=== PATIENT | male | born 1985 ===

== ENCOUNTER 2021-10-17 21:14 | Emergency (ER) | payer BC ==
--- OUTSIDE RECORDS SUMMARY | 2021-10-17 21:16 | XMS REPORT | Continuity of Care Document ---
:1985 Author Organization [facility] t Address [facility] [address] [place] [address] Care Team Providers Name Role Phone PARESH Attending Clinician Unavailable MD TERRA YODER Attending Clinician Unavailable PARESH Admitting Clinician Unavailable MD TERRA YODER Admitting Clinician Unavailable Problems This patient has no known problems. Allergies, Adverse Reactions, Alerts This patient has no known allergies or adverse reactions. Medications This patient has no known medications. Procedures This patient has no known procedures. Encounters Start End Encounter Admission Attending Care Care Encounter Source Date/Time Date/Time Type Type Clinicians Facility Department ID 2021-04-30 2021-04-30 Outpatient [facility] [id number] [place] 00:00:00 00:00:00 AKASH [address] 2021-03-26 2021-03-26 Outpatient [facility] [id number] [place] 00:00:00 00:00:00 AKASH [address] 2021-03-18 2021-03-18 [id number] [place] 00:00:00 00:00:00 AKASH [address] 2021-03-15 2021-03-15 [facility] [id number] [place] 00:00:00 00:00:00 AKASH [address] 2021-02-26 2021-02-26 Outpatient [facility] [id number] [place] 00:00:00 00:00:00 AKASH [address] 2021-02-21 2021-02-21 Outpatient [facility] [id number] [place] 00:00:00 00:00:00 AAKSH [address] 2021-02-21 2021-02-21 Outpatient [facility] [id number] [place] 00:00:00 00:00:00 AKASH [address] 2021-02-21 2021-02-21 Outpatient [facility] [id number] [place] 00:00:00 00:00:00 [address] [facility] Results Test Description Test Time Test Comments Results Result Comments Source SARS-CoV-2 (COVID-19) RNA [Presence] in Respiratory sp ecimen by 2021-03-15 18:53:02 KELSEY with probe detection Test Item Value Reference Range Interpretation Comme nts SARS-CoV-2 (COVID-19) RNA [Presence] in Respiratory Not detected No t-Detected specimen by KELSEY with probe detection (test code = 79683-0) Whether patient is employed in a healthcare setting (test code = 67841-7) Whether the patient has symptoms related to condition of interest (test code = 55424-7) Patient was hospitalized because of this condition (test code = 24884-7) Whether the patient was admitted to intensive care unit (ICU) for condition of interest (test code = 69214-7) Whether patient resides in a congregate care setting (test code = 25843-1)
[2021-10-17] MEDS ORDERED: TETANUS & DIPHTHERIA TOX,ADULT 0.5 ML VIAL ONE (21:42)
[2021-10-17] MEDS ORDERED: LIDOCAINE 1% MPF 5 ML VIAL ONE (21:42)
--- NOTE | 2021-10-17 22:07 | ER ---
Nurse's Notes [facility] Name: Enzo Salazar Age: 35 yrs Sex: Male : 1985 Arrival Date: 10/17/2021 Time: 21:23 Bed 19 Private MD: Diagnosis: Avulsion laceration of tip of left index finger Presentation: 10/17 21:24 Chief complaint: Patient states: "I was cutting vegetables and I cut the tip of my aj1 finger about noon today". Coronavirus screen: Vaccine status: Patient reports receiving the 2nd dose of the covid vaccine. Ebola Screen: Patient denies travel to an Ebola-affected area in the 21 days before illness onset. Complicating Factors: There are no complicating factors for this patient. Initial Sepsis Screen: Does the patient meet any 2 criteria? No. Patient's initial sepsis screen is negative. Does the patient have a suspected source of infection? No. Patient's initial sepsis screen is negative. Risk Assessment: Do you want to hurt yourself or someone else? Patient reports no desire to harm self or others. Onset of symptoms was October 17, 2021. 21:24 Method Of Arrival: Ambulatory aj 21:24 Acuity: ILEANA 3 aj1 Triage Assessment: 21:24 General: Appears in no apparent distress. comfortable, Behavior is calm, cooperative, aj1 appropriate for age. Pain: Complains of pain in left index finger Pain currently is 3 out of 10 on a pain scale. Neuro: Level of Consciousness is awake, alert, obeys commands, Oriented to person, place, time, situation. Injury Description: Laceration sustained to left index finger. Historical: - Allergies: 21:28 No Known Allergies; aj1 - Home Meds: 21:28 None [Active]; aj1 - PMHx: 21:28 None; aj1 - PSHx: 21:28 None; aj1 - Immunization history:: Client reports receiving the 2nd dose of the Covid vaccine, Flu vaccine is not up to date. - Social history:: Smoking status: Patient reports the use of cigarette tobacco products, denies chronic smoking, but will smoke occasionally. Screenin:35 Abuse screen: Denies threats or abuse. Nutritional screening: No deficits noted. cc4 Tuberculosis screening: No symptoms or risk factors identified. Fall Risk None identified. Assessment: 21:35 Musculoskeletal: Avulsion of skin distal medial index finger with sm attachment of cc4 avulsed skin; no active bleeding; moves finger freely with no difficulty. Injury Description: Avulsion left index finger; reports cutting up peppers earlier today around noon. 21:35 Injury Description: Avulsion sustained to dorsal aspect of distal phalanx of left index cc4 finger is partial was sustained 6-12 hours ago. 21:35 Injury Description: Avulsion sustained to dorsal aspect of distal phalanx of left index cc4 finger is partial no bleeding noted. Vital Signs: 21:24 BP 141 / 91; Pulse 86; Resp 18; Temp 98.2; Pulse Ox 100% on R/A; Weight 86.18 kg (R); aj1 Height 6 ft. 1 in. (185.42 cm) (R); Pain 3/10; 21:24 Body Mass Index 25.07 (86.18 kg, 185.42 cm) aj1 ED Course: 21:23 Patient arrived in ED. wm 21:24 [facility] kb 21:24 Dustin Mccauley MD is Attending Physician. kb 21:24 Arm band placed on Patient placed in an exam room. aj1 21:27 Triage completed. aj1 21:35 Patient has correct armband on for positive identification. Bed in low position. Call cc4 light in reach. Side rails up X 1. 21:41 Berenice Hernandez, RN is Primary Nurse. cc4 22:15 No provider procedures requiring assistance completed. cc4 22:15 Patient did not have IV access during this emergency room visit. 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 Exp: cc4 04/05/2023. Lot #: [id number]. } Route: IM; Site: right deltoid; 22:15 Follow up: Response: No adverse reaction cc4 21:55 Drug: Lidocaine (1 %) 1 vials Volume: 5 ml; Route: Infiltration; cc4 22:15 Follow up: Response: No adverse reaction cc4 Outcome: 22:05 Discharge ordered by . kb 22:15 Discharged to home ambulatory. cc4 22:15 Condition: improved 22:15 Discharge instructions given to patient, Instructed on discharge instructions, follow up and referral plans. Demonstrated understanding of instructions, follow-up care, wound care. Signatures: Gaby Starkey, ELAN-Porsha ANSARI-Elle Jeronimo RN RN aj1 Leslie Peoples Christie, RN RN cc4 Corrections: (The following items were deleted from the chart) 10/18 02:21 10/17 22:38 Patient left the ED. cc4 cc4 10/18 02:30 10/17 22:25 No provider procedures requiring assistance completed. cc4 cc4
--- NOTE | 2021-10-17 22:07 | EDPHYS ---
Physician Documentation [facility] Name: Enzo Salazar Age: 35 yrs Sex: Male : 1985 Arrival Date: 10/17/2021 Time: 21:23 Bed 19 Private MD: ED Physician Dustin Mccauley HPI: 10/17 22:02 This 35 yrs old Unknown Male presents to ER via Ambulatory with complaints of kb Laceration To Hand - Left index finger. 22:02 The patient has a laceration related to: cooking, from a knife, occurred at home, and kb there are no complicating factors. The injury was accidental. The laceration(s) is(are) located on the dorsal aspect of distal phalanx of left index finger. Onset: The symptoms/episode began/occurred at 12:00. Associated signs and symptoms: The patient has no apparent associated signs or symptoms. The patient has not experienced similar symptoms in the past. The patient has not recently seen a physician. Pt reports he was chopping vegetables at noon today and sliced the tip of his finger almost off. . Historical: - Allergies: 21:28 No Known Allergies; aj1 - Home Meds: 21:28 None [Active]; aj1 - PMHx: 21:28 None; aj1 - PSHx: 21:28 None; aj1 - Immunization history:: Client reports receiving the 2nd dose of the Covid vaccine, Flu vaccine is not up to date. - Social history:: Smoking status: Patient reports the use of cigarette tobacco products, denies chronic smoking, but will smoke occasionally. ROS: 22:01 Constitutional: Negative for fever, chills, and weight loss. kb 22:01 Skin: Positive for avulsion, of the dorsal aspect of distal phalanx of left index finger. 22:01 All other systems are negative. Exam: 22:01 Constitutional: This is a well developed, well nourished patient who is awake, alert, kb and in no acute distress. Head/Face: Normocephalic, atraumatic. ENT: Moist Mucous membranes Respiratory: Respirations even and unlabored. No increased work of breathing, no retractions or nasal flaring. MS/ Extremity: Pulses equal, no cyanosis. Neurovascular intact. Full, normal range of motion. Neuro: Awake and alert, GCS 15, oriented to person, place, time, and situation. Moves all extremities. Normal gait. Psych: Awake, alert, with orientation to person, place and time. Behavior, mood, and affect are within normal limits. 22:01 Skin: Partial avulsion laceration to left index finger. . Vital Signs: 21:24 BP 141 / 91; Pulse 86; Resp 18; Temp 98.2; Pulse Ox 100% on R/A; Weight 86.18 kg (R); aj1 Height 6 ft. 1 in. (185.42 cm) (R); Pain 3/10; 21:24 Body Mass Index 25.07 (86.18 kg, 185.42 cm) aj1 MDM: 21:29 Patient medically screened. kb 22:01 Data reviewed: vital signs, nurses notes. Data interpreted: Pulse oximetry: on room air kb is 100 %. Interpretation: normal. Counseling: I had a detailed discussion with the patient and/or guardian regarding: the historical points, exam findings, and any diagnostic results supporting the discharge/admit diagnosis, the need for outpatient follow up, a family practitioner, to return to the emergency department if symptoms worsen or persist or if there are any questions or concerns that arise at home. 22:04 ED course: Skin flap attached by one very small section, skin flap dry and pale. Skin kb flap removed with iris scissors after injecting 1cc plain lidocaine into area for local anesthesia. 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 Exp: cc4 04/05/2023. Lot #: [id number]. } Route: IM; Site: right deltoid; 22:15 Follow up: Response: No adverse reaction cc4 21:55 Drug: Lidocaine (1 %) 1 vials Volume: 5 ml; Route: Infiltration; cc4 22:15 Follow up: Response: No adverse reaction cc4 Disposition: 10/18 02:24 Co-signature as Attending Physician, Dustin Mccauley MD. [email or web address] Disposition Summary: 10/17/21 22:05 Discharge Ordered Location: Home kb Condition: Stable kb Diagnosis - Avulsion laceration of tip of left index finger kb Followup: kb - With: Emergency Department - When: As needed - Reason: Worsening of condition Followup: kb - With: Private Physician - When: 2 - 3 days - Reason: Recheck today's complaints, Continuance of care, Re-evaluation by your physician Discharge Instructions: - Discharge Summary Sheet kb - Deep Skin Avulsion kb - Laceration Care, Adult, [id number] kb Forms: - Medication Reconciliation Form kb - Thank You Letter kb - Antibiotic Education kb - Prescription Opioid Use kb Signatures: Gaby Starkey, ELAN-C ELAN-Elle Jeronimo RN RN aj1 Dustin Mccauley MD MD [email or web address] Berenice Hernandez RN RN cc4
[2021-10-17 22:46] VITALS: BP 141/91; TEMP 98.2; O2SAT 100
== END 2021-10-17 22:38 | disposition home or self-care (01) ==
LOC: ER 21:14
DX: S61.211A Laceration without foreign body of left index finger without damage to nail, initial encounter (principal); W26.0XXA Contact with knife, initial encounter; Y93.G3 Activity, cooking and baking; Y92.009 Unspecified place in unspecified non-institutional (private) residence as the place of occurrence of the external cause; Z23 Encounter for immunization; F17.210 Nicotine dependence, cigarettes, uncomplicated
CPT/HCPCS: 90471; 90714; 99283